=== PATIENT | female | born 1945 | race Caucasian/White ===

== ENCOUNTER → 2016-07-08 | Outpatient (CLI) | payer MEDICARE ==
[2016-07-08 12:11] LABS: CH 30.4; CHCM 33.5; HDW 2.65; HGB 13.6 gm/dL (11.4-16.0); MCH 30.2 pg (25.0-35.0); MCHC 33.1 g/dL (31.0-37.0); MCV 91.1 fL (80.0-100.0); Mean Platelet Volume 6.7; RDW 14.3 % (11.5-15.5); WBC 3.5 k/uL (3.8-10.6)
[2016-07-08 12:40] LABS: ALT 74 U/L (9-52); AST 80 U/L (14-36); Alkaline Phosphatase 73 U/L (38-126); Anion Gap 7 mmol/L; Blood Urea Nitrogen 18 mg/dL (7-17); Calcium 9.5 mg/dL (8.4-10.2); Carbon Dioxide 26 mmol/L (22-30); Chloride 106 mmol/L (98-107); Cholesterol 177 mg/dL (<200); Glucose 107 mg/dL (74-99); HDL Cholesterol 66 mg/dL (40-60); Non-African American GFR(MDRD) >60 (>60 ml/min/1.73 sqM); Potassium 5.1 mmol/L (3.5-5.1); Sodium 139 mmol/L (137-145); Total Bilirubin 1.1 mg/dL (0.2-1.3); Total Protein 7.1 g/dL (6.3-8.2); Triglycerides 126 mg/dL (<150)
== END | disposition home or self-care (01) ==
LOC: LABWHC1 11:34
PROVIDERS: ATTEND Internal Medicine Clinical Cardiac Electrophysiology
DX: E78.5 Hyperlipidemia, unspecified (principal); I48.91 Unspecified atrial fibrillation; R07.9 Chest pain, unspecified
CPT/HCPCS: 36415; 80053; 80061; 84443; 85027